=== PATIENT | male | born 1940 | race Hispanic/Latino ===

== ENCOUNTER 2018-07-08 17:18 | Emergency (ER) | payer MEDICARE ==
[~2018-07-08] VITALS: Ht 160 cm; Wt 73.9 kg
[2018-07-08] MEDS ORDERED: LIDOCAINE JELLY 2% 10ML URO-JET ONE (18:17)
[2018-07-08] MEDS ORDERED: LIDOCAINE JELLY 2% 10ML URO-JET TOP ONE (18:30)
[2018-07-08 18:47] LABS: BILIRUBIN,URINE NEGATIVE (NEGATIVE); CLARITY,URINE HAZY (CLEAR); COLOR,URINE YELLOW (YELLOW); KETONES,URINE NEGATIVE (NEGATIVE); LEUKOCYTE ESTERASE ,URINE 2+ (NEGATIVE); NITRITE,URINE NEGATIVE (NEGATIVE); PROTEIN,URINE DIPSTICK TRACE (NEGATIVE); URINE UROBILINOGEN 0.2 mg/dL (0.2 - 1)
[2018-07-08 18:53] LABS: AMORPHOUS SEDIMENT,URINE MODERATE (FEW); BACTERIA,URINE MANY /HPF; RBC,URINE 21-50 /HPF (0-5)
[2018-07-08] MEDS ORDERED: KEFLEX500 MG PO (19:09)
--- NOTE | 2018-07-08 19:14 | NUR ---
Walking rounds with DENISSE Naidu. Patient taught how change leg bag and overnight bag with visual demonstration.
--- NOTE | 2018-07-08 19:19 | NUR ---
WALKING ROUNDS WITH DENISSE MCQUEEN DAY SHIFT NURSE.
[2018-07-08 19:27] VITALS: BP 123/61
== END 2018-07-08 19:42 | disposition home or self-care (01) ==
LOC: ER 17:18
DX: R30.0 Dysuria (principal); N30.91 Cystitis, unspecified with hematuria
CPT/HCPCS: 51700; 81001; 99283

== ENCOUNTER 2018-07-22 13:41 | Emergency (ER) | payer MEDICARE ==
[~2018-07-22] VITALS: Ht 160 cm; Wt 71.7 kg
[~2018-07-22 13:41] MED LIST: KEFLEX500 MG PO
--- NOTE | 2018-07-22 16:20 | Diagnostic Imaging Report ---
Exam: Testicular ultrasound. Clinical History: Swelling. Findings: Per discussion of the technologist, the testicle had a somewhat horizontal lie and it was difficult initially to differentiate the right versus left testicle. Upon conclusion of the study, note was made that what was labeled as the right testicle on the study was the left testicle and the left testicle labeled on the study was a right testicle. This was annotated on image 43 of 65. Both testes are normal in echogenicity and size without intratesticular mass. The right testicle measures 4.2 x 2.1 x 3.1 cm and the left testicle measures 4.1 x 2.0 x 2.8 cm. The right epididymis measures up to 0.7 cm and the left epididymis measures up to 1.7 cm. Normal Doppler flow is demonstrated in bilateral testicles. There is a 0.5 cm left-sided epididymal cyst. A small left hydrocele is noted. No right hydrocele. No evidence of varicocele. Impression: No sonographic evidence of testicular torsion. Small left hydrocele. Simple appearing left epididymal cyst. Signed by: Dr. Jennifer Francis MD on 07/22/2018 4:17 PM
[2018-07-22 16:44] LABS: BILIRUBIN,URINE NEGATIVE (NEGATIVE); CLARITY,URINE SL CLOUDY (CLEAR); COLOR,URINE YELLOW (YELLOW); KETONES,URINE NEGATIVE (NEGATIVE); LEUKOCYTE ESTERASE ,URINE TRACE (NEGATIVE); NITRITE,URINE NEGATIVE (NEGATIVE); PROTEIN,URINE DIPSTICK NEGATIVE (NEGATIVE); URINE UROBILINOGEN 0.2 mg/dL (0.2 - 1)
[2018-07-22 16:54] LABS: BACTERIA,URINE FEW /HPF; RBC,URINE 0-5 /HPF (0-5)
[2018-07-22] MEDS ORDERED: CIPRO500 MG PO (17:20)
[2018-07-22 17:49] VITALS: BP 135/52
== END 2018-07-22 18:07 | disposition home or self-care (01) ==
LOC: ER 13:41
DX: N50.812 Left testicular pain (principal); N30.91 Cystitis, unspecified with hematuria; I10 Essential (primary) hypertension; E11.9 Type 2 diabetes mellitus without complications; I25.2 Old myocardial infarction; Z95.1 Presence of aortocoronary bypass graft; Z85.038 Personal history of other malignant neoplasm of large intestine
CPT/HCPCS: 76870; 81001; 93976; 99283